=== PATIENT | male | born 2000 | race Caucasian/White ===

== ENCOUNTER → 2021-12-09 | Emergency (ER) | payer BC, OTHER ==
[~2021-12-09] VITALS: Ht 175.3 cm; Wt 63.6 kg
[~2021-12-09] MED LIST: HYDROcodone/APAP 5/325MG 1 TAB TABLET PO ONE; KETOROLAC 60 MG/2 ML VIAL. IM ONE
[2021-12-09 21:37] VITALS: BP 145/77
--- NOTE | 2021-12-09 22:25 | RAD ---
Examination: 3 views of the right elbow and 2 views of the right forearm HISTORY: History of elbow pain COMPARISON: None available FINDINGS: The alignment of the elbow joint grossly appears unremarkable. The alignment of the radius, ulna brigido sly appears unremarkable. There is no acute fracture or dislocation identified. IMPRESSION: No acute osseous findings. Electronically signed by: Leif Buckner MD (12/09/2021 10:23 PM) [id number]
== END | disposition home or self-care (01) ==
LOC: ER 21:35
DX: M25.521 Pain in right elbow (principal); R20.0 Anesthesia of skin
CPT/HCPCS: 73080; 73090; 96372; 99284; J1885